=== PATIENT | female | born 1975 | race Caucasian/White ===

== ENCOUNTER 2017-09-27 19:20 | Emergency (ER) | payer BC ==
--- NOTE | 2017-09-27 19:58 | EDM.PDOC ---
ED HPI GENERAL MEDICAL PROBLEM - General Chief Complaint: General Stated Complaint: WATER RETENTION Time Seen by Provider: 09/27/17 19:40 Source of Information: Reports: Patient, Old Records, RN History Limitations: Reports: No Limitations - History of Present Illness INITIAL COMMENTS - FREE TEXT/NARRATIVE: 42 yo female with liver dz and ascites presents due to increased fluid retention over the past couple of weeks. Has not been to see her provider. Did go to urgent care and was referred to the ER. Has mild RUIZ. Weight is up roughly 20# in this time interval. Is already on a few different diuretics that she has been taking. Onset: Gradual Onset Date: 09/13/17 Duration: Week(s):, Getting Worse Location: Reports: Abdomen, Upper Extremity, Right, Lower Extremity, Left Quality: Reports: Other (No pain) Severity: Mild Improves with: Reports: None Worsens with: Reports: Other (time) Context: Reports: Other (ascites) Associated Symptoms: Reports: Shortness of Breath (mainly with exertion) Treatments [employer]: Reports: Other (see below) (tried going to urgent care, usual meds.) general Pain Score (Numeric/FACES): 4 - Related Data Allergies Allergy/AdvReac Type Severity Reaction Status Date / Time celecoxib [From Celebrex] Allergy Intermediate Rash Verified 09/27/17 19:36 Home Meds: Home Meds Acetaminophen/traMADol [Ultracet] 1 - 2 tab PO .Q4-6HR PRN 04/28/13 [History] Cholecalciferol (Vitamin D3) [Vitamin D] 1,000 unit PO DAILY 04/28/13 [History] Estradiol [Estrace] 1 mg PO DAILY 04/28/13 [History] Multivitamin with Minerals [Multivitamins with Minerals] 1 tab PO DAILY [History] ALPRAZolam [Xanax] 0.5 mg PO TID 09/27/17 [History] Baclofen 10 mg PO TID PRN 09/27/17 [History] Bumetanide 1 mg PO BID 09/27/17 [History] Furosemide 40 mg PO DAILY 09/27/17 [History] Lisinopril [Zestril] 5 mg PO DAILY 09/27/17 [History] Metoprolol Succinate [Metoprolol Succinate] 100 mg PO DAILY 09/27/17 [History] Spironolactone [Aldactone] 50 mg PO BID 09/27/17 [History] traZODone 50 mg PO BEDTIME 09/27/17 [History] ED ROS GENERAL - Review of Systems Review Of Systems: See Below Constitutional: Reports: No Symptoms HEENT: Reports: No Symptoms Respiratory: Reports: Shortness of Breath (mainly with exertion). Denies: Wheezing, Pleuritic Chest Pain, Cough, Sputum, Hemoptysis Cardiovascular: Reports: No Symptoms Endocrine: Reports: No Symptoms GI/Abdominal: Reports: Other (increasing abdominal girth.) : Reports: No Symptoms Musculoskeletal: Reports: No Symptoms Skin: Reports: No Symptoms Psychiatric: Reports: No Symptoms ED EXAM, GENERAL - Physical Exam Exam: See Below Exam Limited By: No Limitations General Appearance: Alert, WD/WN, No Apparent Distress Eye Exam: Bilateral Eye: Normal Inspection (no jaundice/scleral icterus) Ears: Normal External Exam, Normal Canal, Hearing Grossly Normal, Normal TMs Ear Exam: Bilateral Ear: Auricle Normal, Canal Normal, TM normal Nose: Normal Inspection, Normal Mucosa, No Blood Throat/Mouth: Normal Inspection, Normal Lips, Normal Oropharynx, Normal Voice, No Airway Compromise Head: Atraumatic, Normocephalic Neck: Normal Inspection, Supple Respiratory/Chest: No Respiratory Distress, Lungs Clear, Normal Breath Sounds, No Accessory Muscle Use Cardiovascular: Regular Rate, Rhythm, No Edema GI/Abdominal: Normal Bowel Sounds, Soft, Non-Tender, Distended (ascites) Back Exam: Normal Inspection. No: CVA Tenderness (R), CVA Tenderness (L) Extremities: Normal Range of Motion, Non-Tender, Pedal Edema (Trace edema to the LLE, none on right.). No: Berry's Sign, Limited Range of Motion Neurological: Alert, Oriented, CN II-XII Intact, Normal Cognition, No Motor/ Sensory Deficits Psychiatric: Normal Affect, Normal Mood Skin Exam: Warm, Dry, Intact, Normal Color, No Rash Lymphatic: No Adenopathy Course - Vital Signs Last Recorded V/S: Last Vital Signs Temp 37.1 C 09/27/17 19:20 Pulse 115 H 09/27/17 19:20 Resp 18 09/27/17 19:20 BP 137/78 09/27/17 19:20 Pulse Ox 98 09/27/17 19:20 - Orders/Labs/Meds Orders: Active Orders 24 hr Category Date Time Status UA W/MICROSCOPIC [URIN] Stat Lab 09/27/17 19:51 Uncollected Labs: Laboratory Tests 09/27/17 09/27/17 Range/Units 20:00 20:00 WBC 8.7 (4.5-12.0) X10-3/uL RBC 3.92 (3.23-5.20) x10(6)uL Hgb 12.9 (11.5-15.5) g/dL Hct 37.7 (30.0-51.3) % MCV 96.1 H (80-96) fL MCH 32.8 (27.7-33.6) pg MCHC 34.1 (32.2-35.4) g/dL RDW 16.0 H (11.5-15.5) % Plt Count 253 (125-369) X10(3)uL Sodium 134 L (135-145) mmol/L Potassium 3.5 (3.5-5.3) mmol/L Chloride 94 L (100-110) mmol/L Carbon Dioxide 25 (21-32) mmol/L BUN 13 (7-18) mg/dL Creatinine 0.9 (0.55-1.02) mg/dL Est Cr Clr Drug Dosing 77.57 mL/min Estimated GFR (MDRD) > 60 (>60) BUN/Creatinine Ratio 14.4 (9-20) Glucose 121 H (80-116) mg/dL Calcium 8.3 L (8.6-10.2) mg/dL Total Bilirubin 0.4 (0.1-1.3) mg/dL AST 157 H* (5-25) IU/L ALT 87 H (12-36) U/L Alkaline Phosphatase 185 H (56-112) IU/L Total Protein 8.0 (6.0-8.0) g/dL Albumin 3.0 L (3.5-5.2) g/dL Globulin 5.0 g/dL Albumin/Globulin Ratio 0.6 Meds: Medications Discontinued Medications Generic Name Dose Route Start Last Admin Trade Name Freq PRN Reason Stop Dose Admin Potassium Chloride 40 meq 09/27/17 21:03 Klor-Con M20 PO 09/27/17 21:04 ONETIME ONE Departure - Departure Time of Disposition: 21:15 Disposition: Home, Self-Care 01 Condition: Good Clinical Impression: Hepatitis Fluid overload Qualifiers: Hypervolemia type: unspecified Qualified Code(s): E87.70 - Fluid overload, unspecified - Discharge Information Referrals: Blaine Etienne MD [Primary Care Provider] - Forms: ED Department Discharge Additional Instructions: Increase your spironolactone to 50 mg three times a day. Avoid salt or salty foods. Reduce your water intake by a glass a day. Recheck with your provider the end of this week. - My Orders Last 24 Hours: My Active Orders 09/27/17 19:51 UA W/MICROSCOPIC [URIN] Stat - Assessment/Plan Last 24 Hours: My Active Orders 09/27/17 19:51 UA W/MICROSCOPIC [URIN] Stat
[2017-09-27 20:07] VITALS: BP 137/78
[2017-09-27] MEDS: Potassium Chloride 20 MEQ Tab.ER PO ONE ×2 (21:09→21:10)
== END 2017-09-27 21:15 | disposition home or self-care (01) ==
LOC: FB.ED 19:20
DX: K75.9 Inflammatory liver disease, unspecified (principal); E87.70 Fluid overload, unspecified; Z88.8 Allergy status to other drugs, medicaments and biological substances; Z79.899 Other long term (current) drug therapy
CPT/HCPCS: 36415; 80053; 85027; 99284; A9270-GY

== ENCOUNTER 2019-05-14 21:08 | Emergency (ER) | payer BC ==
[2019-05-14] MEDS ORDERED: Pantoprazole 40 MG Vial IVPUSH ONE (21:29)
[2019-05-14] MEDS ORDERED: Sodium Chloride 0.9% 1,000 ML IV SCH ×2 (21:30→23:45)
[2019-05-14] MEDS: Sodium Chloride 0.9% 10 ML Syringe FLUSH PRN ×2 (21:40→23:31)
--- NOTE | 2019-05-14 21:55 | EDM.PDOC ---
ED HPI GENERAL MEDICAL PROBLEM - General Chief Complaint: General Stated Complaint: SWOLLEN JAW Time Seen by Provider: 05/14/19 21:08 Source of Information: Reports: Patient, Family History Limitations: Reports: No Limitations - History of Present Illness INITIAL COMMENTS - FREE TEXT/NARRATIVE: 43 y.o.w.f H/O ETOH abuse, came to the ED because of high ant neck swelling for 2 days, unable to drink water because of pain. She feels weak as well, her last upper GI was neg for esophageal varicosis, No F/C, no N/V/D. As per patient, the cause of her hepatitis is not determined. No other acute med issues. BP 86 /46 RR 22 temp 36.8 Pulse 111 Onset Date: 05/13/19 Onset Time: 09:00 Duration: Hour(s):, Day(s):, Getting Worse, Intermittent Location: Reports: Face (jaw swelling) Quality: Reports: Dull Severity: Moderate Improves with: Reports: None Worsens with: Reports: None Context: Reports: Other (H/O Hepatitis, poor po intake.) Associated Symptoms: Reports: Loss of Appetite Frontal Neck Pain Score (Numeric/FACES): 9 - Related Data Allergies Allergy/AdvReac Type Severity Reaction Status Date / Time celecoxib [From Celebrex] Allergy Intermediate Rash Verified 05/14/19 21:52 hydromorphone [From Dilaudid] Allergy Itching Verified 05/14/19 21:52 Home Meds: Home Meds Cholecalciferol (Vitamin D3) [Vitamin D] 1,000 unit PO DAILY 04/28/13 [History] Multivitamin with Minerals [Multivitamins with Minerals] 1 tab PO DAILY [History] Furosemide 40 mg PO DAILY 09/27/17 [History] Metoprolol Succinate 100 mg PO DAILY 09/27/17 [History] Spironolactone [Aldactone] 50 mg PO ASDIRECTED 09/27/17 [History] Gabapentin [Neurontin] 300 mg PO ASDIRECTED 05/14/19 [History] PARoxetine HCl [Paroxetine HCl] 10 mg PO ASDIRECTED 05/14/19 [History] QUEtiapine Fumarate [Quetiapine Fumarate] 50 mg PO ASDIRECTED 05/14/19 [History] Past Medical History Cardiovascular History: Reports: Hypertension Genitourinary History: Reports: Other (See Below) Other Genitourinary History: Patient had "flu" which developed in kidney failure and liver probelms. Had dialysis x3 for acute kidney failure. - Past Surgical History GI Surgical History: Reports: Bariatric Procedure, Cholecystectomy Female Surgical History: Reports: Hysterectomy Musculoskeletal Surgical History: Reports: Arthroscopic Knee, Other (See Below) Other Musculoskeletal Surgeries/Procedures:: back ED ROS GENERAL - Review of Systems Review Of Systems: See Below Constitutional: Reports: Weakness HEENT: Reports: Throat Pain, Other (edematous neck) Respiratory: Reports: No Symptoms Cardiovascular: Reports: No Symptoms Endocrine: Reports: No Symptoms GI/Abdominal: Reports: Decreased Appetite, Difficulty Swallowing, Distension : Reports: No Symptoms Musculoskeletal: Reports: No Symptoms Skin: Reports: No Symptoms Neurological: Reports: No Symptoms Psychiatric: Reports: No Symptoms Hematologic/Lymphatic: Reports: No Symptoms Immunologic: Reports: No Symptoms ED EXAM, GENERAL - Physical Exam Exam: See Below Exam Limited By: No Limitations General Appearance: Alert, WD/WN, Moderate Distress, Obese Eye Exam: Bilateral Eye: Normal Inspection, Other (jaundice ) Ears: Normal External Exam Ear Exam: Bilateral Ear: Auricle Normal Nose: Normal Inspection, Normal Mucosa Throat/Mouth: Normal Lips, Normal Oropharynx, Normal Voice, No Airway Compromise , Inflammation (soft tissue swelling of high anterior neck) Head: Atraumatic, Normocephalic Neck: Supple, Non-Tender, Full Range of Motion, Other (swelling) Respiratory/Chest: No Respiratory Distress, Lungs Clear, Normal Breath Sounds Cardiovascular: Normal Peripheral Pulses, Regular Rate, Rhythm, No Edema Peripheral Pulses: 1+: Carotid (R) GI/Abdominal: No Abnormal Bruit, Hepatomegaly, Splenomegaly, Other (shifting fluid waves ) (Female) Exam: Deferred Rectal (Female) Exam: Deferred Back Exam: Normal Inspection, Full Range of Motion Extremities: Normal Inspection, Normal Range of Motion, Non-Tender, No Pedal Edema, Normal Capillary Refill Neurological: Alert, Oriented, CN II-XII Intact, Normal Cognition, Other (pt came by wheel chair) Psychiatric: Normal Affect (of high upper neck) Skin Exam: Erythema (of ) Lymphatic: No Adenopathy EKG INTERPRETATION EKG Date: 05/14/19 Time: 22:40 Rhythm: NSR Rate (Beats/Min): 97 [place]: Normal P-Wave: Present QRS: Normal ST-T: Normal QT: Prolonged (522) Comparison: NA - No Prior EKG Course - Vital Signs Text/Narrative:: 43 y.o.w.f H/O ETOH abuse, came to the ED because of high ant neck swelling for 2 days, unable to drink water because of pain. She feels weak as well, her last upper GI was neg for esophageal varicosis, No F/C, no N/V/D. As per patient, the cause of her hepatitis is not determined. No other acute med issues. BP 86 /46 RR 22 temp 36.8 Pulse 111 PE: Obese 43 y.o w f with H/O Hepatitis and ascites c/o dysphagia and high anterior neck swelling Imaging: CT Neck: Extensive soft tissue stranding and edema in te subcutaneous soft tissue of high anterior neck and submandibular space. Labs: WBC 19.9 HGB 9.1 HCT 26.3 Na 128 K 2.9 BUN 34 Cr 2.3 GFR 23 Ca 6.5 Lactic acid 1.0 elevated liver enzymes BCx results are pending Impression: Hepatitis with ascites. Elevated Liver enzymes, renal insufficiency , Hypokalemia, hyponatremia, Hypocalcemia, Cellulitis of neck, dehydration, Anemia, prolonged QTc (522) Tx: NS. Zosyn, potassium. Protonix, Solu Medrol. 11.20 pm Consultation: Dr. Gray, NAYAN, [facility]: Accepted the pt for transfer and further care, agreed with Tx Reexam: Pt's vitals improved after NS bolus, Abx, agreed to be transferred. Plan: Transfer to [facility] by [facility] Last Recorded V/S: Last Vital Signs Temp 36.8 C 05/14/19 23:15 Pulse 96 05/14/19 22:45 Resp 19 05/15/19 00:00 BP 117/64 05/15/19 00:00 Pulse Ox 98 05/15/19 00:00 - Orders/Labs/Meds Labs: Laboratory Tests 05/14/19 05/14/19 05/14/19 Range/Units 20:40 20:40 20:40 WBC 19.5 H (4.5-12.0) X10-3/uL RBC 2.52 L (3.23-5.20) x10(6)uL Hgb 9.1 L (11.5-15.5) g/dL Hct 26.3 L D (30.0-51.3) % MCV 104.6 H (80-96) fL MCH 36.0 H (27.7-33.6) pg MCHC 34.4 (32.2-35.4) g/dL RDW 16.1 H (11.5-15.5) % Plt Count 320 (125-369) X10(3)uL MPV 9.5 (7.4-10.4) fL Add Manual Diff Yes Neutrophils % (Manual) 77 (46-82) % Band Neutrophils % 3 (0-6) % Lymphocytes % (Manual) 8 L (13-37) % Monocytes % (Manual) 11 (4-12) % Eosinophils % (Manual) 1 (0-5) % PT 14.3 H (8.7-11.1) INR 1.48 H (0.89-1.13) Sodium (135-145) mmol/L Potassium (3.5-5.3) mmol/L Chloride (100-110) mmol/L Carbon Dioxide (21-32) mmol/L BUN (7-18) mg/dL Creatinine (0.55-1.02) mg/dL Est Cr Clr Drug Dosing Estimated GFR (MDRD) (>60) BUN/Creatinine Ratio (9-20) Glucose (80-116) mg/dL Lactic Acid (0.4-2.2) mmol/L Calcium (8.6-10.2) mg/dL Total Bilirubin (0.1-1.3) mg/dL Direct Bilirubin (0.10-0.20) mg/dL AST (5-25) IU/L ALT (12-36) U/L Alkaline Phosphatase (56-112) IU/L Total Protein (6.0-8.0) g/dL Albumin (3.5-5.2) g/dL Amylase (25-115) U/L Lipase 40 L (73-393) U/L Vitamin B12 (193-986) pg/mL Urine Color (YELLOW) Urine Appearance (CLEAR) Urine pH (5.0-6.5) Ur Specific Mcbee (1.010-1.025) Urine Protein (NEGATIVE) mg/dL Urine Glucose (UA) (NORMAL) mg/dL Urine Ketones (NEGATIVE) mg/dL Urine Occult Blood (NEGATIVE) Urine Nitrite (NEGATIVE) Urine Bilirubin (NEGATIVE) Urine Urobilinogen (NEGATIVE) mg/dL Ur Leukocyte Esterase (NEGATIVE) Urine RBC (0-5) Urine WBC (0-5) Ur Squamous Epith Cells (NS,R,O) Urine Bacteria (NS) 05/14/19 05/14/19 05/14/19 Range/Units 21:40 21:40 21:40 WBC (4.5-12.0) X10-3/uL RBC (3.23-5.20) x10(6)uL Hgb (11.5-15.5) g/dL Hct (30.0-51.3) % MCV (80-96) fL MCH (27.7-33.6) pg MCHC (32.2-35.4) g/dL RDW (11.5-15.5) % Plt Count (125-369) X10(3)uL MPV (7.4-10.4) fL Add Manual Diff Neutrophils % (Manual) (46-82) % Band Neutrophils % (0-6) % Lymphocytes % (Manual) (13-37) % Monocytes % (Manual) (4-12) % Eosinophils % (Manual) (0-5) % PT (8.7-11.1) INR (0.89-1.13) Sodium 128 L (135-145) mmol/L Potassium 2.9 L (3.5-5.3) mmol/L Chloride 92 L (100-110) mmol/L Carbon Dioxide 18 L (21-32) mmol/L BUN 36 H D (7-18) mg/dL Creatinine 2.3 H* (0.55-1.02) mg/dL Est Cr Clr Drug Dosing TNP Estimated GFR (MDRD) 23 L (>60) BUN/Creatinine Ratio 15.7 (9-20) Glucose 94 (80-116) mg/dL Lactic Acid 1.0 (0.4-2.2) mmol/L Calcium 6.9 L (8.6-10.2) mg/dL Total Bilirubin 7.2 H (0.1-1.3) mg/dL Direct Bilirubin 6.40 H (0.10-0.20) mg/dL AST 53 H D (5-25) IU/L ALT 44 H D (12-36) U/L Alkaline Phosphatase 139 H (56-112) IU/L Total Protein 6.2 (6.0-8.0) g/dL Albumin 1.7 L* (3.5-5.2) g/dL Amylase 22 L (25-115) U/L Lipase (73-393) U/L Vitamin B12 2827 H (193-986) pg/mL Urine Color (YELLOW) Urine Appearance (CLEAR) Urine pH (5.0-6.5) Ur Specific [place] (1.010-1.025) Urine Protein (NEGATIVE) mg/dL Urine Glucose (UA) (NORMAL) mg/dL Urine Ketones (NEGATIVE) mg/dL Urine Occult Blood (NEGATIVE) Urine Nitrite (NEGATIVE) Urine Bilirubin (NEGATIVE) Urine Urobilinogen (NEGATIVE) mg/dL Ur Leukocyte Esterase (NEGATIVE) Urine RBC (0-5) Urine WBC (0-5) Ur Squamous Epith Cells (NS,R,O) Urine Bacteria (NS) 05/14/19 Range/Units 23:20 WBC (4.5-12.0) X10-3/uL RBC (3.23-5.20) x10(6)uL Hgb (11.5-15.5) g/dL Hct (30.0-51.3) % MCV (80-96) fL MCH (27.7-33.6) pg MCHC (32.2-35.4) g/dL RDW (11.5-15.5) % Plt Count (125-369) X10(3)uL MPV (7.4-10.4) fL Add Manual Diff Neutrophils % (Manual) (46-82) % Band Neutrophils % (0-6) % Lymphocytes % (Manual) (13-37) % Monocytes % (Manual) (4-12) % Eosinophils % (Manual) (0-5) % PT (8.7-11.1) INR (0.89-1.13) Sodium (135-145) mmol/L Potassium (3.5-5.3) mmol/L Chloride (100-110) mmol/L Carbon Dioxide (21-32) mmol/L BUN (7-18) mg/dL Creatinine (0.55-1.02) mg/dL Est Cr Clr Drug Dosing Estimated GFR (MDRD) (>60) BUN/Creatinine Ratio (9-20) Glucose (80-116) mg/dL Lactic Acid (0.4-2.2) mmol/L Calcium (8.6-10.2) mg/dL Total Bilirubin (0.1-1.3) mg/dL Direct Bilirubin (0.10-0.20) mg/dL AST (5-25) IU/L ALT (12-36) U/L Alkaline Phosphatase (56-112) IU/L Total Protein (6.0-8.0) g/dL Albumin (3.5-5.2) g/dL Amylase (25-115) U/L Lipase (73-393) U/L Vitamin B12 (193-986) pg/mL Urine Color Yellow (YELLOW) Urine Appearance Slightly cloudy (CLEAR) Urine pH 5.0 (5.0-6.5) Ur Specific [place] 1.005 L (1.010-1.025) Urine Protein Trace (NEGATIVE) mg/dL Urine Glucose (UA) Normal (NORMAL) mg/dL Urine Ketones 15 H (NEGATIVE) mg/dL Urine Occult Blood Moderate H (NEGATIVE) Urine Nitrite Negative (NEGATIVE) Urine Bilirubin Small H (NEGATIVE) Urine Urobilinogen 4 H (NEGATIVE) mg/dL Ur Leukocyte Esterase Negative (NEGATIVE) Urine RBC 5-10 H (0-5) Urine WBC 0-5 (0-5) Ur Squamous Epith Cells Moderate H (NS,R,O) Urine Bacteria Few H (NS) Meds: Medications Discontinued Medications Generic Name Dose Route Start Last Admin Trade Name Freq PRN Reason Stop Dose Admin Sodium Chloride 1,000 mls @ 125 mls/hr 05/14/19 21:30 05/14/19 23:15 Normal Saline IV 125 mls/hr ASDIRECTED JAY Infusion Piperacillin Sod/Tazobactam 50 mls @ 100 mls/hr 05/14/19 22:45 05/14/19 22:55 Sod 3.375 gm/ Sodium Chloride IV 100 mls/hr Q6H JAY Administration Potassium Chloride 10 meq/ 100 mls @ 100 mls/hr 05/14/19 22:47 05/14/19 23:35 Premix IV 05/14/19 23:46 75 mls/hr ONETIME ONE Infusion Sodium Chloride 1,000 mls @ 125 mls/hr 05/14/19 23:45 05/15/19 00:15 Normal Saline IV 125 mls/hr ASDIRECTED JAY Administration Methylprednisolone Sodium Succinate 125 mg 05/14/19 23:27 05/14/19 23:30 Solu-Medrol IVPUSH 05/14/19 23:28 125 mg ONETIME ONE Administration Pantoprazole Sodium 40 mg 05/14/19 21:29 05/14/19 21:45 Protonix Iv IVPUSH 05/14/19 21:30 40 mg ONETIME ONE Administration Sodium Chloride 10 ml 05/14/19 21:32 05/14/19 23:31 Saline Flush FLUSH 10 ml ASDIRECTED PRN Administration Keep Vein Open Departure - Departure Time of Disposition: 21:00 Disposition: DC/Tfer to Acute Hospital 02 Condition: Fair Clinical Impression: Cellulitis, neck - Discharge Information Referrals: Christina Mosqueda MD [Primary Care Provider] - Forms: ED Department Discharge
[2019-05-14] MEDS ORDERED: Piperacillin/Tazobactam 3.375 GM in Sodium Chloride 0.9% 50 ML IV SCH (22:45)
[2019-05-14] MEDS ORDERED: Potassium Chloride 10 MEQ in Premix Bag 1 BAG IV ONE (22:47)
[2019-05-14] MEDS ORDERED: methylPREDNISolone Sodium Succinate 125 MG/2 ML SDV IVPUSH ONE (23:27)
[2019-05-15 00:52] VITALS: PULSE 96
[2019-05-15 00:55] VITALS: BP 117/64
== END 2019-05-15 00:20 ==
LOC: FB.ED 21:08
DX: L03.221 Cellulitis of neck (principal); K75.9 Inflammatory liver disease, unspecified; R18.8 Other ascites; E87.6 Hypokalemia; E83.51 Hypocalcemia; N28.9 Disorder of kidney and ureter, unspecified; E87.1 Hypo-osmolality and hyponatremia; E86.0 Dehydration; D64.9 Anemia, unspecified; I45.81 Long QT syndrome; R74.8 Abnormal levels of other serum enzymes; I10 Essential (primary) hypertension; Z99.2 Dependence on renal dialysis; Z79.899 Other long term (current) drug therapy; Z98.84 Bariatric surgery status; Z90.49 Acquired absence of other specified parts of digestive tract; Z90.710 Acquired absence of both cervix and uterus; Z88.6 Allergy status to analgesic agent
CPT/HCPCS: 36415; 51701; 70490; 80048; 80076; 81001; 82150; 82607; 83605; 83690; 85025; 85610; 87040; 93005; 96361; 96365; 96367; 96375; 99285-25; C9113; J2543; J2930; J3480; J7030; J7050